=== PATIENT | male | born 1965 | race Asian ===

== ENCOUNTER → 2024-03-14 | Outpatient (CLI) | payer MEDICAID | LOC: M PLALAB 03-13 14:37 | PROVIDERS: ATTEND Family Medicine | DX: Z20.1 Contact with and (suspected) exposure to tuberculosis (principal) ==

== ENCOUNTER → 2024-04-22 | Outpatient (CLI) | payer MEDICAID ==
[2024-04-22 15:37] LABS: BASO # 0.1 10^3/uL (0.0-0.2); BASO % 0.6 % (0.0-1.0); EOS # 0.2 10^3/uL (0.0-0.5); EOS % 2.2 % (0.0-3.0); HEMATOCRIT 39.3 % (42.0-52.0); HEMOGLOBIN 12.3 g/dl (13.5-17.5); LYMPH # 2.2 10^3/uL (1.5-5.0); LYMPH % 25.2 % (24.0-44.0); MEAN CORPUSCULAR HEMOGLOBIN 26.3 pg (27.0-33.0); MEAN CORPUSCULAR HGB CONC 31.3 g/dl (32.0-36.5); MONO # 0.7 10^3/uL (0.0-0.8); MONO % 8.5 % (2.0-8.0); NEUTROPHILS # 5.4 10^3/uL (1.5-8.5); PLATELET COUNT, AUTOMATED 346 10^3/uL (150-450); RED BLOOD COUNT 4.68 10^6/uL (4.30-6.10); WHITE BLOOD COUNT 8.6 10^3/uL (4.0-10.0)
[2024-04-22 15:51] LABS: HEMOGLOBIN A1c 6.6 % (4.0-6.0)
[2024-04-22 15:55] LABS: ERYTHROCYTE SEDIMENTATION RATE 120 mm/hr (0-20)
[2024-04-22 16:17] LABS: C REACTIVE PROTEIN QUANTITATIV 3.19 MG/DL (<1.0)
[2024-04-22 16:18] LABS: ALBUMIN 3.8 G/DL (3.2-5.2); ALKALINE PHOSPHATASE 84 U/L (40-129); ALT/SGPT 24 U/L (7.0-40); AST/SGOT 17 U/L (<34); BILIRUBIN,TOTAL 0.6 MG/DL (0.3-1.2); BLOOD UREA NITROGEN 27 MG/DL (9-23); CALCIUM LEVEL 9.4 MG/DL (8.5-10.1); CARBON DIOXIDE LEVEL 22 MMOL/L (20-31); CHLORIDE LEVEL 109 MMOL/L (98-107); CHOLESTEROL LEVEL 161 MG/DL (<200); CHOLESTEROL RISK RATIO 5.27 (<5); CREATININE FOR GFR 1.29 MG/DL (0.70-1.30); GLOMERULAR FILTRATION RATE > 60.0 (>56); GLUCOSE, FASTING 106 MG/DL (60-100); HDL CHOLESTEROL 30.5 MG/DL (>40); LDL CHOLESTEROL 87.5 MG/DL (<100); NON-HDL-C 130.5 MG/DL; POTASSIUM SERUM 4.5 MMOL/L (3.5-5.1); SODIUM LEVEL 142 MMOL/L (136-145); TOTAL PROTEIN 7.7 G/DL (5.7-8.2); TRIGLYCERIDES LEVEL 215 MG/DL (<150)
[2024-04-22 16:19] LABS: HEPATITIS B SURFACE ANTIBODY NEGATIVE (POSITIVE); RHEUMATOID FACTOR QUANT < 3.5 IU/ML (<14); TOTAL 25(OH) VITAMIN D 30.4 NG/ML (20.0-100.0)
[2024-04-22 16:32] LABS: HEPATITIS B SURFACE ANTIGEN NEGATIVE (NEGATIVE)
[2024-04-22 16:45] LABS: HIV 1&2 SCREEN NEGATIVE (NEGATIVE)
[2024-04-22 16:52] LABS: HEPATITIS C VIRUS ABY INDEX 0.07 INDEX (<0.8)
[2024-04-23 13:22] LABS: HEPATITIS B CORE ANTIBODY IGG NON-REACTIVE (NON-REACTIVE)
== END ==
LOC: M PLALAB 11:16
PROVIDERS: ATTEND Internal Medicine Infectious Disease
DX: R39.89 Other symptoms and signs involving the genitourinary system (principal); Z22.7 Latent tuberculosis

== ENCOUNTER → 2024-05-06 | Outpatient (CLI) | payer OTHER | LOC: M PLAIMG 10:24 | PROVIDERS: ATTEND Internal Medicine Infectious Disease | DX: Z22.7 Latent tuberculosis (principal); R93.89 Abnormal findings on diagnostic imaging of other specified body structures ==

== ENCOUNTER → 2024-05-15 | Outpatient (CLI) | payer OTHER | LOC: M PLAIMG 10:39 | PROVIDERS: ATTEND Nurse Practitioner Family | DX: M25.531 Pain in right wrist (principal) ==

== ENCOUNTER → 2024-05-15 | Outpatient (CLI) | payer OTHER ==
[2024-05-15 14:15] LABS: THYROID STIMULATING HORMONE 3.062 uIU/ML (0.55-4.78)
[2024-05-15 14:16] LABS: FREE T4 1.58 NG/DL (0.89-1.76)
[2024-05-15 14:37] LABS: CREATININE, URINE 198.9 MG/DL; MALB URINE SIEMENS < 3.0 MG/L
[2024-05-16 19:17] LABS: SSA SJOGRENS A <1.0 NEG AI (<1.0 NEG); SSB SJOGRENS B <1.0 NEG AI (<1.0 NEG)
== END ==
LOC: M PLALAB 10:42
PROVIDERS: ATTEND Internal Medicine Infectious Disease
DX: Z13.29 Encounter for screening for other suspected endocrine disorder (principal); M25.531 Pain in right wrist

== ENCOUNTER → 2024-06-11 | Day surgery (SDC) | payer OTHER ==
[~2024-06-11] VITALS: Ht 167.6 cm; Wt 71.7 kg
[~2024-06-11] MED LIST: ACETAMINOPHEN 325 MG TAB As Ordered ONE; AMLO1TAB24 PO; ESMOLOL INJ 100MG/10ML VIAL As Ordered ONE; FEBU40TA4 PO; FOLI1TAB11 PO; JANU50TA8 PO; LIDOCAINE 2% 100MG/5ML SDV (FOR ANES.) As Ordered ONE; LIDOCAINE 5% OINT 30GM TUBE As Ordered ONE; LOSA50TA28 PO; MIDAZOLAM INJ 2MG/2ML VIAL As Ordered ONE; ONDANSETRON 4MG 2ML VIAL As Ordered ONE; PANT40TA29 PO; PLAQ200T4 PO; PRED5PAK2 PO; ROCURONIUM BROMIDE 50MG/5ML VIAL As Ordered ONE; SUGAMMADEX SODIUM 500 MG/5 ML VIAL (BRIDION) As Ordered ONE; [UNRECOGNIZED DRUG - OTHER] PO; propofoL 200 MG/20 ML VIAL As Ordered ONE
[2024-06-11] MEDS: CETACAINE SPRAY 5GM As Ordered ONE (12:57)
[2024-06-11] MEDS: EPINEPHrine 1MG/10ML SYRINGE 1.5IN As Ordered ONE (13:20)
[2024-06-11] MEDS: THROMBIN 5,000 UNITS VIAL As Ordered ONE (13:25)
[2024-06-11 14:40] VITALS: BP 130/92; TEMP 97.1; O2SAT 97
[2024-06-11] MEDS: ACETAMINOPHEN 325 MG TAB PO ONE (14:41)
== END | disposition home or self-care (01) ==
LOC: M SDC 10:42
PROVIDERS: ATTEND Internal Medicine Critical Care Medicine
DX: R91.8 Other nonspecific abnormal finding of lung field (principal); E11.9 Type 2 diabetes mellitus without complications; Z79.899 Other long term (current) drug therapy; Z87.891 Personal history of nicotine dependence
CPT/HCPCS: 31623; 31624; 31628; 71045; 76000; 87070; 87071; 87102; 87116; 87205; 87206; 88108; 88305; 88313; J0171; J1100; J1805; J2250; J2405

== ENCOUNTER → 2024-06-30 | Outpatient (CLI) | payer OTHER ==
[~2024-06-30] MED LIST changes: -ACETAMINOPHEN 325 MG TAB As Ordered ONE; -ESMOLOL INJ 100MG/10ML VIAL As Ordered ONE; -LIDOCAINE 2% 100MG/5ML SDV (FOR ANES.) As Ordered ONE; -LIDOCAINE 5% OINT 30GM TUBE As Ordered ONE; -MIDAZOLAM INJ 2MG/2ML VIAL As Ordered ONE; -ONDANSETRON 4MG 2ML VIAL As Ordered ONE; -ROCURONIUM BROMIDE 50MG/5ML VIAL As Ordered ONE; -SUGAMMADEX SODIUM 500 MG/5 ML VIAL (BRIDION) As Ordered ONE; -propofoL 200 MG/20 ML VIAL As Ordered ONE
[2024-06-30 14:08] LABS: ALBUMIN 3.6 G/DL (3.2-5.2); ALKALINE PHOSPHATASE 89 U/L (40-129); ALT/SGPT 16 U/L (7.0-40); AST/SGOT 9 U/L (<34); BILIRUBIN,TOTAL 0.5 MG/DL (0.3-1.2); BLOOD UREA NITROGEN 17 MG/DL (9-23); C REACTIVE PROTEIN QUANTITATIV 2.29 MG/DL (<1.0); CALCIUM LEVEL 9.5 MG/DL (8.5-10.1); CARBON DIOXIDE LEVEL 27 MMOL/L (20-31); CHLORIDE LEVEL 104 MMOL/L (98-107); CREATININE FOR GFR 0.92 MG/DL (0.70-1.30); GLOMERULAR FILTRATION RATE > 90.0 (>56); GLUCOSE, FASTING 129 MG/DL (60-100); POTASSIUM SERUM 4.6 MMOL/L (3.5-5.1); RHEUMATOID FACTOR QUANT 5.1 IU/ML (<14); SODIUM LEVEL 142 MMOL/L (136-145); TOTAL PROTEIN 7.3 G/DL (5.7-8.2)
[2024-06-30 14:10] LABS: FREE T4 1.61 NG/DL (0.89-1.76)
[2024-06-30 14:11] LABS: URIC ACID 9.7 MG/DL (3.7-9.2)
[2024-06-30 14:12] LABS: BASO % 0.3 % (0.0-1.0); EOS # 0.1 10^3/uL (0.0-0.5); EOS % 1.6 % (0.0-3.0); HEMATOCRIT 38.7 % (42.0-52.0); LYMPH # 1.9 10^3/uL (1.5-5.0); LYMPH % 21.5 % (24.0-44.0); MEAN CORPUSCULAR HEMOGLOBIN 25.6 pg (27.0-33.0); MEAN CORPUSCULAR VOLUME 82.5 fl (80.0-96.0); MONO # 0.6 10^3/uL (0.0-0.8); MONO % 6.3 % (2.0-8.0); NEUTROPHILS # 6.3 10^3/uL (1.5-8.5); NEUTROPHILS % 69.9 % (36.0-66.0); PLATELET COUNT, AUTOMATED 308 10^3/uL (150-450); RED BLOOD COUNT 4.69 10^6/uL (4.30-6.10); WHITE BLOOD COUNT 8.9 10^3/uL (4.0-10.0)
[2024-06-30 14:27] LABS: ERYTHROCYTE SEDIMENTATION RATE 100 mm/hr (0-20)
[2024-06-30 14:34] LABS: HEMOGLOBIN A1c 6.6 % (4.0-6.0)
[2024-06-30 14:44] LABS: CREATININE, URINE 112.3 MG/DL
[2024-06-30 14:45] LABS: MALB URINE SIEMENS < 3.0 MG/L
== END ==
LOC: M PLALAB 10:33
PROVIDERS: ATTEND Nurse Practitioner Family
DX: I10 Essential (primary) hypertension (principal)

== ENCOUNTER 2024-08-21 09:43 | Day surgery (SDC) | payer OTHER ==
[~2024-08-21] VITALS: Ht 172.7 cm; Wt 72.5 kg
[2024-08-21] MEDS ORDERED: LIDOCAINE 2% 100 MG/5 ML SDV (FOR ANES.) As Ordered ONE (10:31)
[2024-08-21 10:55] VITALS: BP 129/87; TEMP 97.5; O2SAT 98
== END 2024-08-21 11:10 | disposition home or self-care (01) ==
LOC: M OPP 09:43
PROVIDERS: ATTEND Surgery
DX: Z12.11 Encounter for screening for malignant neoplasm of colon (principal); G47.30 Sleep apnea, unspecified; Z79.84 Long term (current) use of oral hypoglycemic drugs; Z79.899 Other long term (current) drug therapy; Z87.891 Personal history of nicotine dependence